=== PATIENT | female | born 1970 | race Caucasian/White ===

== ENCOUNTER → 2018-02-10 | Day surgery (SDC) | payer OTHER ==
[~2018-02-10] VITALS: Ht 157.5 cm; Wt 73.0 kg
--- NOTE | 2018-02-10 16:34 | Operative Report ---
Operative/Inv Procedure Report Surgery Date: 02/10/18 Name of Procedure: Cystocele repair with mesh, urethral sling, cystoscopy Pre-Operative Diagnosis: Cystocele and stress incontinence Post-Operative Diagnosis: Same Estimated Blood Loss: 50ml to 100ml Surgeon/[employer] Professor: Tania Burt MD Anesthesia: laryngeal mask airway Implants: Vaginal mesh Complications: None Condition: Stable Operative Indication: Cystocele and stress urinary incontinence Operative/Procedure Note Note: 47-year-old female with a history of cystocele and stress urinary incontinence. Vaginal bulge was bothersome as well as the urinary leakage. She was given the options of pessary versus surgical repair. She was given the risks benefits and alternatives of surgical repair and she wished to proceed. Vaginal mesh and the risks of later complications were also discussed. She was also given literature to review. Consent was signed in the holding area. Patient was taken to the operating room and placed on the operating table in supine position. Timeout was performed. IV antibiotics were infused. LMA anesthesia was begun and patient was placed in the dorsolithotomy position. Genitalia region was shaved prior to prepping and draping in the standard sterile fashion. Solano catheter was placed beginning of the surgery and the bladder was emptied and the Solano was placed in the abdomen. Since retractor was placed and [place] retractor was 6 Morales stays. 1% lidocaine was infiltrated into the anterior vaginal wall from the bladder neck down to the cervix. Incision was made and the bladder was dissected out without apparent injury to the bladder. The Digitek's suture placement device was then used to place 2-0 Prolene into the sacrospinous ligament on the patient's left and right side. Same was done at the level of the bladder neck into the arcus tendineus. The Restoril mesh was then opened and placed through the 4 anchoring sutures. Sutures were tied down and the mesh was secured at the proximal portion with 2-0 Vicryl and the bladder neck with 2-0 Vicryl. Methylene blue 10 mL had been given approximately 10 minutes prior to this. Cystoscopy was performed and the bladder was globally inspected. There are no abnormalities or issues noted. The ureteral orifices were easily identified and excellent ureteral efflux was seen emanating from both orifices. The Solano catheter was placed back into the bladder. Attention was then turned to the sling portion of the case. Percent lidocaine was infiltrated into the anterior vaginal wall beneath the urethra. Incision was made need the urethra approximately 3 inches in length. The vaginal flaps are created taking care not to injure the urethra. The Altis sling kit was then opened and the trochars provided used to place the sling in a tension-free manner. [place] was placed between the sling and the urethra to ensure that the sling was not too tight. The area was grossly irrigated with bacitracin irrigation. There was no mesh in the vaginal fornices. The Prolene tightening suture was then cut and the incision was closed with 3-0 Vicryl locked every third suture. Solano catheter was removed again and a cystoscopy was performed and there is no mesh in the bladder or the urethra. The bladder was emptied. 2 inch vaginal packing impregnated with bacitracin ointment was placed in the vaginal vault. Sponge and needle count were correct at the end of the case. Patient tolerated the procedure well no hypotensive or cardiac events. Findings: No mesh in the bladder urethra or fornices. Bilateral ureteral efflux was seen cystoscopically. Findings: No mesh in bladder, urethra, vaginal fornices. Excellent bilateral ureteral efflux. Discharge Disposition: PACU
== END ==
LOC: STS 01:42
DX: N39.3 Stress incontinence (female) (male) (principal); N81.10 Cystocele, unspecified; R39.11 Hesitancy of micturition; R39.16 Straining to void; R15.9 Full incontinence of feces
CPT/HCPCS: 81025; C1771; J0690; J2250; Q9968